=== PATIENT | female | born 1990 | race Caucasian/White ===

== ENCOUNTER → 2016-10-06 | Emergency (ER) | payer BC, MEDICAID ==
[~2016-10-06] VITALS: Ht 162.6 cm; Wt 63.5 kg
[~2016-10-06] MED LIST: CYMBALTA; IV NORMAL SALINE 1000 ML BAG IV ONE; ONDANSETRON 4 MG/2 ML VIAL IV ONE; ONDANSETRON 4 MG/2 ML VIAL ONE; TERAZOSIN; TRAZODONE; ZARONTIN
--- NOTE | 2016-10-06 06:00 | NUR ---
Received pt from ER c/o of n/v/d since yesterday. Last food intake was egg sandwich from a restaurant lunch time and had the symptoms around 1800. Pt stated that her room mate has the same diarrhea but did not eat the same food, she mentioned that her roommate was just hospitalized for dehydration and had diarrhea as well. AOX3 ambulatory.
--- NOTE | 2016-10-06 06:05 | NUR ---
Labs were drawn. Started peripheral IV at left AC g 20.
[2016-10-06 06:14] LABS: BASOPHILS # (AUTO) 0.2 K/uL (0.0-8.0); BASOPHILS % (AUTO) 1.3 % (0.0-2.0); EOSINOPHILS % (AUTO) 0.1 % (0.0-7.0); HEMATOCRIT 49.1 % (37-47); HEMOGLOBIN 17.1 G/DL (12.0-16.0); LYMPHOCYTES # (AUTO) 0.2 K/UL (0.8-4.8); LYMPHOCYTES % (AUTO) 1.4 % (20.5-51.5); MEAN CORPUSCULAR HGB CONC 35 g/dL (32.0-37.0); MEAN CORPUSCULAR VOLUME 85.9 FL (81.0-99.0); MONOCYTES # (AUTO) 0.2 K/UL (0.1-1.30); MONOCYTES % (AUTO) 1.7 % (0.0-11.0); NEUTROPHILS % (AUTO) 95.5 % (38.5-71.5); PLATELET COUNT (AUTO) 207 K/UL (150-450); RED BLOOD CELL COUNT(AUTO) 5.72 MIL/UL (4.2-5.4); WHITE BLOOD COUNT (AUTO) 11.6 K/UL (4.0-11.2)
--- NOTE | 2016-10-06 06:15 | NUR ---
Zofran 4mg/IVP given as ordered.
[2016-10-06 06:25] LABS: CALCIUM 9.1 mg/dL (8.5-10.1); CREATININE 1.1 mg/dL (0.6-1.3); POTASSIUM 4.1 mmol/L (3.5-5.1)
[2016-10-06 06:31] LABS: ALBUMIN 4.5 g/dL (3.4-5.0); BILIRUBIN,DIRECT 0.2 mg/dL (0.0-0.2); BILIRUBIN,TOTAL 1.5 mg/dL (0.2-1.0); TOTAL PROTEIN, SERUM 8.3 g/dL (6.4-8.2)
--- NOTE | 2016-10-06 06:40 | NUR ---
Patient discharged to home in stable conditon. Written and verbal after care instructions given. Patient verbalizes understanding of instructions.
--- NOTE | 2016-10-06 06:41 | NUR ---
Discharge instructions provided including zofran prescriptions, verbalized understanding.
[2016-10-06 07:04] VITALS: BP 94/73
== END | disposition home or self-care (01) ==
LOC: ER 05:33
DX: R11.2 Nausea with vomiting, unspecified (principal); R19.7 Diarrhea, unspecified; E86.0 Dehydration; F41.9 Anxiety disorder, unspecified
CPT/HCPCS: 36415; 84703; 85025; A4663; J2405; J7030